=== PATIENT | female | born 1950 ===

== ENCOUNTER 2021-08-18 07:34 | Day surgery (SDC) | payer OTHER ==
[~2021-08-18 07:34] MED LIST: LEVOXYL88 MCG PO; SINGULAIR10 MG PO; SYMBICORT 16010.2 GM IH; VENTO IH; VITAMIN D
== END 2021-08-18 16:05 | disposition home or self-care (01) ==
LOC: CIR.AMB 07:34
PROVIDERS: ATTEND Colon & Rectal Surgery
DX: N81.6 Rectocele (principal); K64.4 Residual hemorrhoidal skin tags; K62.0 Anal polyp

== ENCOUNTER 2021-09-20 16:53 | Emergency (ER) | payer OTHER ==
[~2021-09-20] VITALS: Ht 157.5 cm; Wt 80.3 kg
== END 2021-09-21 15:36 | disposition home or self-care (01) ==
LOC: ER 16:53
DX: G89.18 Other acute postprocedural pain (principal); K62.89 Other specified diseases of anus and rectum; K59.09 Other constipation